=== PATIENT | female | born 1940 | race Two or more races ===

== ENCOUNTER 2025-02-04 06:54 | Day surgery (SDC) | payer OTHER ==
[2025-02-04] MEDS ORDERED: DIPHENHYDRAMINE HCL 50 MG/ML VIAL 1ML IV ONE (10:45)
[2025-02-04] MEDS ORDERED: fentaNYL CITRATE 50 MCG/ML AMPUL IV PUSH ONE (10:45)
[2025-02-04] MEDS ORDERED: MIDAZOLAM HCL 2 MG/2 ML VIAL IV ONE (10:45)
== END 2025-02-04 13:05 | disposition home or self-care (01) ==
LOC: AMB-ENDOS 06:54
PROVIDERS: ATTEND Colon & Rectal Surgery
DX: K63.5 Polyp of colon (principal); K57.30 Diverticulosis of large intestine without perforation or abscess without bleeding; K58.9 Irritable bowel syndrome, unspecified; Z86.0100 Personal history of colon polyps, unspecified

== ENCOUNTER 2025-03-26 08:00 | Outpatient (CLI) | payer OTHER ==
[~2025-03-26] VITALS: Ht 160 cm; Wt 51.3 kg
[2025-03-26] MEDS ORDERED: VENOFLASH (14:00)
[2025-03-26] MEDS ORDERED: ARTHRITIS PAIN650 M2 (14:01)
[2025-03-26] MEDS ORDERED: GABAPENTIN300 MG (14:01)
[2025-03-26] MEDS ORDERED: EZALLOR SPRINKL10 MG PO (14:01)
[2025-03-26] MEDS ORDERED: COZAAR25 MG PO (14:02)
[2025-03-26] MEDS ORDERED: PEPCID AC20 MG PO (14:02)
[2025-03-26] MEDS ORDERED: ECOTRIN81 MG PO (14:03)
[2025-03-26 14:07] VITALS: BP 154/76
== END 2025-03-26 08:05 | disposition home or self-care (01) ==
LOC: EKG 08:00 → EDSTATUS 03-31 11:30 → SURH 03-31 11:30
PROVIDERS: ATTEND Colon & Rectal Surgery
DX: D12.2 Benign neoplasm of ascending colon (principal); Z86.0100 Personal history of colon polyps, unspecified; K92.1 Melena

== ENCOUNTER 2025-03-29 09:05 | Inpatient (IN) | payer OTHER ==
[~2025-03-29] VITALS: Ht 160 cm; Wt 51.3 kg
[~2025-03-29 09:05] MED LIST: ARTHRITIS PAIN650 M2; COZAAR25 MG PO; ECOTRIN81 MG PO; EZALLOR SPRINKL10 MG PO; GABAPENTIN300 MG; PEPCID AC20 MG PO; VENOFLASH
--- NOTE | 2025-03-29 09:47 | NUR ---
SE RECIBE PACIENTE ALERTA Y CONCIENTE . 3 ACOMPANADO DE CHEN HIJA, LA CUAL REFIERE QUE LA PACIENTE VIENE POR UN REFERIDO DE TRANSFUCION DE KESHA POR LA DR. MCMANUS, INDICA QUE LA PACIENTE TENDRA EDDIE CIRUGIA DEL INTESTINO ACENDENTE. SE PROCEDE A JANETTE S/V AL PACIENMTE Y SE UBICA EN TYLER 10 CON BARANDAS ELEVADAS Y NIOVEL MAS BAJO.
[2025-03-29] MEDS ORDERED: FAMOTIDINE/PF 20 MG/2 ML VIAL IV SCH (11:28)
[2025-03-29] MEDS ORDERED: ACETAMINOPHEN 500 MG GEL..CAP PO PRN (11:30)
[2025-03-29] MEDS ORDERED: LOSARTAN POTASSIUM 25 MG TABLET PO SCH (11:32)
[2025-03-29] MEDS ORDERED: ENALAPRILAT DIHYDRATE 1.25 MG/ML VIAL IV PRN (11:45)
[2025-03-29] MEDS ORDERED: ROSUVASTATIN CALCIUM 10 MG TABLET PO SCH (17:00)
[2025-03-29 18:19] VITALS: BP 150/79; O2SAT 97
[2025-03-30 01:07] VITALS: BP 132/68; O2SAT 97
[2025-03-30 08:00] VITALS: BP 145/72; O2SAT 99
[2025-03-30] MEDS ORDERED: LOSARTAN POTASSIUM 25 MG TABLET PO SCH (09:00)
[2025-03-30 16:00] VITALS: BP 150/69; O2SAT 99
[2025-03-31 01:13] VITALS: BP 110/60; O2SAT 98
[2025-03-31 08:43] VITALS: BP 119/70; O2SAT 97
[2025-03-31 15:31] LABS: BASO % 0.6 % (0.1-1.2); EOS # 0.06 (0.04-0.54); EOS % 0.9 % (0.7-7.0); LYMPH # 1.17 (1.18-3.74); LYMPH % 17.5 % (19.3-53.1); MEAN PLATELET VOLUME 10.90 fl (9.4-12.4); MONO # 0.48 (0.24-0.82); MONO % 7.2 % (4.7-12.5); NEUT # 4.90 (1.56-6.13); NEUT % 73.5 % (34.0-71.1); RED CELL DISTRIBUTION WIDTH 14.5 % (11.6-14.4)
[2025-03-31 15:55] LABS: INR 1.0
[2025-03-31 15:59] LABS: ALT/SGPT 23.0 U/L (12-78); AST/SGOT 21.0 U/L (15-37); BILIRUBIN TOTAL 1.55 mg/dL (0.3-1.2); BUN CREA RATIO 30.0 (7.0-25.0); CREATININE SERUM 0.94 mg/dL (0.55-1.02); GFR 56.73; GLOBULINA 2.8 G/DL (2.4-3.5); GLUCOSE FASTING 85.0 mg/dL (65-100); OSMOLALITY SERUM 293.0 MOSM/KG (275-295)
[2025-03-31 16:00] VITALS: BP 126/74; O2SAT 96
[2025-04-01 00:23] VITALS: BP 125/79; O2SAT 98
[2025-04-01 08:47] VITALS: BP 130/67; O2SAT 96
[2025-04-01] MEDS ORDERED: BUPIVACAINE HCL/PF 0.25% 30ML VIAL InF ONE (13:45)
[2025-04-01] MEDS ORDERED: METRONIDAZOLE/SODIUM CHLORIDE 500 MG/100 ML PIGGYBACK IV ONE (13:45)
[2025-04-01] MEDS ORDERED: LIDOCAINE HCL 1%/EPINEPHRINE 20ML VIAL IJ ONE (13:45)
[2025-04-01] MEDS ORDERED: CEFTRIAXONE SODIUM 2,000 MG VIAL IV ONE (13:45)
[2025-04-01] MEDS ORDERED: MORPHINE SULFATE 4 MG/ML CARTRIDGE IV PRN (14:30)
[2025-04-01] MEDS ORDERED: ONDANSETRON HCL 2 MG/ML VIAL IV PRN (14:30)
[2025-04-01] MEDS ORDERED: OxyCODONE HCL 5 MG TABLET (ROXICODONE) PO PRN (14:30)
[2025-04-01] MEDS ORDERED: DEXTROSE 50 % IN WATER 0.5 G/ML VIAL IV PRN (14:30)
[2025-04-01] MEDS ORDERED: RINGERS SOLUTION,LACTATED 1,000 ML IV SCH (14:30)
[2025-04-01] MEDS ORDERED: MORPHINE SULFATE 4 MG/ML VIAL IV ONE (15:40)
[2025-04-01 15:51] LABS: BASO % 0.4 % (0.1-1.2); EOS # 0.03 (0.04-0.54); EOS % 0.3 % (0.7-7.0); LYMPH # 1.03 (1.18-3.74); LYMPH % 8.9 % (19.3-53.1); MEAN PLATELET VOLUME 10.50 fl (9.4-12.4); MONO # 0.55 (0.24-0.82); MONO % 4.8 % (4.7-12.5); NEUT # 9.82 (1.56-6.13); NEUT % 85.2 % (34.0-71.1); RED CELL DISTRIBUTION WIDTH 14.7 % (11.6-14.4)
[2025-04-01 16:55] VITALS: BP 134/36; O2SAT 94
[2025-04-01] MEDS ORDERED: METOCLOPRAMIDE HCL 5 MG/ML VIAL IV SCH (17:00)
[2025-04-01] MEDS ORDERED: SIMETHICONE 125 MG CAPSULE PO SCH (17:00)
[2025-04-01] MEDS ORDERED: HYOSCYAMINE SULFATE 0.125 MG TAB.SUBL SL SCH (17:00)
[2025-04-01] MEDS ORDERED: GABAPENTIN 300 MG CAPSULE PO SCH (17:00)
[2025-04-01] MEDS ORDERED: CELECOXIB 200 MG CAPSULE PO SCH (17:00)
[2025-04-01] MEDS ORDERED: POLYETHYLENE GLYCOL 3350 17 GM BLIST.PACK PO SCH (17:00)
[2025-04-01] MEDS ORDERED: ACETAMINOPHEN 500 MG GEL..CAP PO SCH (20:00)
[2025-04-01] MEDS ORDERED: FAMOTIDINE/PF 20 MG/2 ML VIAL IV PUSH SCH (21:00)
[2025-04-02 00:42] VITALS: BP 133/63; O2SAT 97
[2025-04-02 08:00] VITALS: BP 102/50; O2SAT 95
[2025-04-02 08:43] LABS: BASO % 0.2 % (0.1-1.2); EOS # 0.00 (0.04-0.54); EOS % 0.0 % (0.7-7.0); LYMPH # 0.65 (1.18-3.74); LYMPH % 5.2 % (19.3-53.1); MEAN PLATELET VOLUME 11.70 fl (9.4-12.4); MONO # 0.66 (0.24-0.82); MONO % 5.3 % (4.7-12.5); NEUT # 11.20 (1.56-6.13); NEUT % 89.0 % (34.0-71.1); RED CELL DISTRIBUTION WIDTH 14.6 % (11.6-14.4)
[2025-04-02] MEDS ORDERED: LACTULOSE 20 G/30 ML BLIST.PACK PO SCH (09:00)
[2025-04-02] MEDS ORDERED: LACTOBACILLUS ACIDOPHILUS 1 CAP CAP PO SCH (09:00)
[2025-04-02 09:13] LABS: BUN CREA RATIO 34.0 (7.0-25.0); CREATININE SERUM 0.93 mg/dL (0.55-1.02); GFR 57.44; GLUCOSE FASTING 105.0 mg/dL (65-100); OSMOLALITY SERUM 296.0 MOSM/KG (275-295)
[2025-04-02 16:00] VITALS: BP 100/56; O2SAT 96
[2025-04-02] MEDS ORDERED: ENOXAPARIN SODIUM 40 MG/0.4 ML SYRINGE SUBCUTANEO SCH (17:00)
[2025-04-03 06:46] LABS: BASO % 0.4 % (0.1-1.2); EOS # 0.12 (0.04-0.54); EOS % 1.3 % (0.7-7.0); LYMPH # 1.11 (1.18-3.74); LYMPH % 12.4 % (19.3-53.1); MEAN PLATELET VOLUME 12.00 fl (9.4-12.4); MONO # 0.39 (0.24-0.82); MONO % 4.4 % (4.7-12.5); NEUT # 7.26 (1.56-6.13); NEUT % 81.2 % (34.0-71.1); RED CELL DISTRIBUTION WIDTH 14.8 % (11.6-14.4)
[2025-04-03 07:26] LABS: BUN CREA RATIO 31.0 (7.0-25.0); CREATININE SERUM 0.99 mg/dL (0.55-1.02); GFR 53.44; GLUCOSE FASTING 89.0 mg/dL (65-100); OSMOLALITY SERUM 297.0 MOSM/KG (275-295)
[2025-04-03 08:00] VITALS: BP 130/60; O2SAT 97
[2025-04-03] MEDS ORDERED: ENOXAPARIN SODIUM 40 MG/0.4 ML SYRINGE SUBCUTANEO SCH (09:00)
== END 2025-04-03 11:45 | disposition home or self-care (01) | DRG 330 ==
LOC: ER 09:14 → SURH 12:13
PROVIDERS: Internal Medicine; ADMIT Colon & Rectal Surgery; ATTEND Colon & Rectal Surgery
PROC: 30233N1 Transfusion of Nonautologous Red Blood Cells into Peripheral Vein, Percutaneous Approach (ICD-10-PCS; 2025-03-29)
PROC: 07BB4ZZ Excision of Mesenteric Lymphatic, Percutaneous Endoscopic Approach (ICD-10-PCS; 2025-04-01)
PROC: 0DTF4ZZ Resection of Right Large Intestine, Percutaneous Endoscopic Approach (ICD-10-PCS; principal; 2025-04-01 15:00)
DX: C18.2 Malignant neoplasm of ascending colon (principal); K92.1 Melena

== ENCOUNTER 2025-04-20 19:59 | Emergency (ER) | payer OTHER ==
[~2025-04-20] VITALS: Ht 157.5 cm; Wt 51.3 kg
[2025-04-20] MEDS ORDERED: CEFTRIAXONE SODIUM 2,000 MG VIAL IV ONE (21:00)
[2025-04-20 21:32] LABS: BASO % 1.0 % (0.1-1.2); EOS # 0.20 (0.04-0.54); EOS % 3.2 % (0.7-7.0); LYMPH # 1.65 (1.18-3.74); LYMPH % 26.2 % (19.3-53.1); MEAN PLATELET VOLUME 10.90 fl (9.4-12.4); MONO # 0.50 (0.24-0.82); MONO % 7.9 % (4.7-12.5); NEUT # 3.87 (1.56-6.13); NEUT % 61.5 % (34.0-71.1); RED CELL DISTRIBUTION WIDTH 16.9 % (11.6-14.4)
[2025-04-20] MEDS ORDERED: BACTRIM DS TAB1 EACH PO (21:55)
== END 2025-04-20 22:28 | disposition home or self-care (01) ==
LOC: ER 19:59
PROVIDERS: General Practice
DX: L02.91 Cutaneous abscess, unspecified (principal)
CPT/HCPCS: 36415; 96365; 99282; J0696